=== PATIENT | male | born 1945 | race Caucasian/White ===

== ENCOUNTER 2017-06-07 08:00 | Observation (INO) ==
[2017-06-07 08:58] VITALS: BMI 24.9
[2017-06-07] MEDS: FLECAINIDE 50 MG TABLET PO SCH ×2 (09:54→21:08)
--- NOTE | 2017-06-07 10:43 | Cardiology History & Physical ---
History of Present Illness Chief complaint: palpitations HPI: Eliu is a 71 year old male who is well known to Dr. Watson with a history of PVCs, paroxysmal atrial fibrillation and non rheumatic tricuspid insufficiency who was seen in the office 05/25/17 and reported increased palpitations since his Amiodarone was discontinued. Recent Holter monitor shows moderate number of PVCs for 24 hours , no evidence of A Fib or PAT. He is being admitted to observation for anti-arrhythmic therapy with Flecainide. Review of Systems - Constitutional Constitutional: Absent: chills, fatigue, fever(s) - EENMT Eyes: Absent: change in vision Balance: Absent: vertigo Mouth/Throat: Absent: sore throat, scratchy throat - Cardiovascular Cardiovascular: Present: palpitations. Absent: chest pain, syncope, dyspnea on exertion Rhythm: Present: abnormal rhythm Vascular: Absent: pedal edema - Respiratory Respiratory: Absent: cough, dyspnea, dyspnea on exertion - Gastrointestinal Gastrointestinal: Absent: abdominal pain, diarrhea, nausea, vomiting - Genitourinary Genitourinary: Absent: dysuria - Integumentary/Breasts Integumentary: Absent: rash - Neurological Neurological: Absent: dizziness - Endocrine Endocrine: Present: palpitations PFSH Patient Stated Medical History Cardiac Arrhythmia Yes: a fib Hypertension Yes: hx of Other GI Yes: constipation Anemia Yes Clinic Medical History (Last Updated 04/28/17 @ 08:34 by Sarah Godoy Harjit) HTN (hypertension) (Chronic Medical) Hypercholesteremia (Chronic Medical) RBBB (right bundle branch block) (Chronic Medical) Surgical History: R inguinal herniorrhaphy,. medial meniscal repair R knee ,. thyroglossal cyst removed in 1951,. tonsillectomy 1950. Family History: Family History Other HTN (hypertension) - Social History Smoking status: Never smoker Substance use type: does not use Alcohol intake frequency: does not drink Household members: spouse Current occupational status: retired Current residence: Apartment/Private Home Medications Home Medications Medication Instructions Recorded Confirmed Type Aspirin 1 tab PO DAILY #0 tab 03/24/15 06/07/17 History Glucosamine/Chondroitin Sulf A 1 tab PO DAILY #0 03/24/15 06/07/17 History [Glucosamine Chondroitin Cap] Multivitamin [Multivitamins] 1 tab PO DAILY #0 03/24/15 06/07/17 History Red Yeast Rice 1 tab PO DAILY #0 03/24/15 06/07/17 History polyethylene glycol 3350 17 17 g PO DAILY g 04/28/17 06/07/17 History gram/dose oral powder sennosides-docusate sodium 8.6 1 tab PO DAILY PRN tab 04/28/17 06/07/17 History mg-50 mg tablet Ferrous Sulfate 325 mg PO DAILY 06/06/17 06/07/17 History Acetaminophen [Pain Reliever] 500 - 1,000 mg PO HS 06/07/17 06/07/17 History Allergies Allergy/AdvReac Type Severity Reaction Status Date / Time No Known Drug Allergies Allergy Unknown Verified 06/07/17 09:05 Exam Vital signs: Temperature 95.9 F L 06/07/17 09:10 Pulse Rate 68 06/07/17 09:10 Respiratory Rate 18 06/07/17 09:10 Blood Pressure 138/74 06/07/17 09:10 Pulse Oximetry 99 06/07/17 09:10 - Constitutional no acute distress, well nourished, well developed, cooperative - Routine HEENT Exam Head: Present: normocephalic ENT: Present: mucous membranes moist - Routine Neck Exam Absent: JVD, carotid bruit - Routine Chest/Breast/Axilla Exam Chest wall: Absent: tenderness - Routine Respiratory Exam Present: CTA bilaterally. Absent: rales, wheezes - Routine Cardiovascular Exam Present: RRR, S1, S2, no murmur. Absent: JVD - Routine Abdominal Exam Present: soft, normoactive bowel sounds - Routine Extremities Exam Present: no edema - Routine Skin Exam Present: intact, dry, warm - Routine Neurological Exam Present: alert, oriented X3 - Routine Psychiatric Exam Present: normal affect, normal thought process Results 06/07/17 08:50 06/08/17 04:04 Cardiac Enzymes 06/07/17 Range/Units 08:50 AST 28 (17-59) U/L CBC 06/07/17 Range/Units 08:50 WBC 4.9 (4.5-11.0) T/MM3 RBC 4.63 (4.50-5.90) M/MM3 Hgb 14.0 (13.5-17.5) GM/DL Hct 43.3 (41-53) % Plt Count 139 (130-400) T/MM3 Neut # (Auto) 2.9 (1.8-7.7) T/MM3 Lymph # (Auto) 1.3 (1-4.8) T/MM3 [place] # (Auto) 0.5 (0-0.8) T/MM3 Eos # (Auto) 0.2 (0-0.5) T/MM3 Baso # (Auto) 0.0 (0-0.2) T/MM3 Comprehensive Metabolic Panel 06/07/17 Range/Units 08:50 Sodium 145 H (134-144) MEQ/L Potassium 4.3 (3.6-5) MEQ/L Chloride 107 (98-107) MEQ/L Carbon Dioxide 27 (22-30) MEQ/L BUN 19.0 (9-20) MG/DL Creatinine 0.9 (0.8-1.5) MG/DL Glucose 100 (75-110) MG/DL Calcium 9.6 (8.4-10.2) MG/DL AST 28 (17-59) U/L ALT 35 (21-72) U/L Alkaline Phosphatase 57 (38-126) U/L Total Protein 7.8 (6.3-8.2) G/DL Albumin 4.3 (3.5-5.0) G/DL Intake and Output 06/06/17 06/07/17 06/07/17 22:59 06:59 14:59 Intake Total 0 / 0 Balance 0 / 0 Intake: Oral 0 / 0 Other: Weight 178 lb 9.191 oz Patient Weight 06/08/17 06:59 Weight 178 lb 9.191 oz Laboratory Results - last 48 hr 06/07/17 06/07/17 08:50 08:50 WBC 4.9 RBC 4.63 Hgb 14.0 Hct 43.3 MCV 93.5 MCH 30.2 MCHC 32.3 RDW Std Deviation 51.9 H Plt Count 139 MPV 9.9 Immature Gran % (Auto) 0.2 Neut % (Auto) 58.4 Lymph % (Auto) 27.1 [place] % (Auto) 10.2 H Eos % (Auto) 3.5 Baso % (Auto) 0.6 Neut # (Auto) 2.9 Lymph # (Auto) 1.3 [place] # (Auto) 0.5 Eos # (Auto) 0.2 Baso # (Auto) 0.0 Abs Immat Gran (auto) 0.01 Turbidity < 20 Sodium 145 H Potassium 4.3 Chloride 107 Carbon Dioxide 27 Anion Gap 11 BUN 19.0 Creatinine 0.9 GFR Calculation 84 BUN/Creatinine Ratio 21 Glucose 100 Calculated Osmolality 281 H Calcium 9.6 Magnesium 2.1 Total Bilirubin 0.60 Icterus Index < 2 AST 28 ALT 35 Alkaline Phosphatase 57 Total Protein 7.8 Albumin 4.3 Globulin 3.5 Albumin/Globulin Ratio 1.2 TSH 0.91 Specimen Hemolysis 32 H - Imaging and Cardiology EKG results: image reviewed EKG interpretations - Dysrhythmias Sinus rhythms and dysrhythmias: sinus rhythm - Blocks, axis, hypertrophy, ST abn AV and intraventricular conduction: right bundle branch block (fixed/ intermittent, complete/incomplete), left anterior fascicular block Chamber hypertrophy or enlargement: left ventricular hypertrophy or enlargement (LVE) Hospital Course This is a general summary of the patient's hospital course. For more details refer to the complete medical record. Time spent with patient: 25 - 35 minutes Assessment and Plan - Attestation Attestation Narrative: 06/08/17 17:52 Recommendation After examining the patient I agree with the above assessment. I am involved in the formulation of the patient's plan of care. - Assessment and Plan (1) Ventricular premature depolarization Status: Acute Recent Holter monitor shows moderate number of PVCs for 24 hours , no evidence of A Fib or PAT. He is being admitted to observation for anti-arrhythmic therapy with Flecainide. (2) Paroxysmal atrial fibrillation Status: Acute (3) Non-rheumatic tricuspid valve insufficiency Status: Acute
[2017-06-07 12:10] VITALS: RESP 16
[2017-06-07] MEDS ORDERED: --POM--ACETAMINOPHEN 500 MG TABLET PO SCH (21:00)
[2017-06-07] MEDS ORDERED: PRAMIPEXOLE 0.25 MG PO SCH (21:00)
[2017-06-08 00:20] VITALS: TEMP 96.9; O2SAT 99
[2017-06-08 07:34] VITALS: BP 135/87; PULSE 58
[2017-06-08] MEDS ORDERED: FERROUS SULFATE 324 MG TABLET PO SCH (08:00)
[2017-06-08] MEDS: FLECAINIDE 50 MG TABLET PO SCH (08:50)
[2017-06-08] MEDS ORDERED: GLUCOSAMINE PO SCH (09:00)
[2017-06-08] MEDS ORDERED: WOMEN PO SCH (09:00)
[2017-06-08] MEDS ORDERED: MULTIVITAMIN PO SCH (09:00)
[2017-06-08] MEDS ORDERED: [UNRECOGNIZED DRUG - OTHER] PO SCH (09:00)
[2017-06-08] MEDS ORDERED: MSM PO SCH (09:00)
[2017-06-08] MEDS ORDERED: --POM--ASPIRIN *EC* 81 MG TABLET PO SCH (09:00)
--- NOTE | 2017-06-08 11:20 | Discharge Instructions ---
<Marta Ch - Last Filed: 06/08/17 11:14> Discharge Plan - Med Rec/Dispo Referrals/Follow Up: Elvin Watson MD [Physician] - 06/21/17 3:30 pm Rhea Instructions: Flecainide (By mouth) Prescriptions: New Flecainide [Tambocor] 50 mg PO Q12HR #60 tab Continue Aspirin 1 tab PO DAILY #0 tab Ferrous Sulfate 325 mg PO DAILY Multivitamin [Multivitamins] 1 tab PO DAILY #0 Glucosamine/Chondroitin Sulf A [Glucosamine Chondroitin Cap] 1 tab PO DAILY # 0 Red Yeast Rice 1 tab PO DAILY #0 Acetaminophen [Pain Reliever] 500 - 1,000 mg PO HS sennosides-docusate sodium 8.6 mg-50 mg tablet 1 tab PO DAILY PRN tab PRN Reason: Prn Orders polyethylene glycol 3350 17 gram/dose oral powder 17 g PO DAILY g - Disposition 01 Discharged Home, Self-Care <Elvin Watson - Last Filed: 06/10/17 12:54> Discharge Plan - Med Rec/Dispo - Attestation Attestation Narrative: 06/10/17 12:54 Patient seen by midlevel and agree with above. I have reviewed labs, ekg findings and patient is stable for discharge.
[2017-06-09] MEDS ORDERED: FERROUS SULFATE 325 MG PO SCH (08:00)
== END 2017-06-08 11:45 | disposition home or self-care (01) ==
LOC: SRG
PROVIDERS: ADMIT Internal Medicine Cardiovascular Disease; ATTEND Internal Medicine Cardiovascular Disease